=== PATIENT | male | born 1955 | race Caucasian/White ===

== ENCOUNTER 2017-09-08 20:40 | Emergency (ER) | payer OTHER ==
--- NOTE | 2017-09-08 20:54 | Emergency Department Record ---
History of Present Illness - General Chief complaint: Male Urogenital Problem Stated complaint: POSSIBLE UTI Time Seen by Provider: 09/08/17 20:51 Source: Patient Mode of Arrival: Ambulatory Limitations: No limitations - History of Present Illness Initial comments: 62 yo male presents to ED for evaluation of dysuria and urinary retention symptoms that began this evening. Patient reports similar symptoms related to a UTI, also a history of prostatitis about 10 years ago. Patient denies fevers , chills, abdominal pain, flank pain, or vomiting symptoms. MD Complaint: Dysuria Onset/Timin -: Hour(s) Radiation: None Severity: Moderate Consistency: Constant Improves with: None Worsens with: Urination Reports: Denies other symptoms - Related Data Home Medications Medication Instructions Recorded Confirmed Last Taken Allopurinol [Zyloprim] 300 mg PO DAILY 09/08/17 09/08/17 Unknown Chlorthalidone 25 mg PO DAILY 09/08/17 09/08/17 Unknown Diltiazem HCl [Cardizem Cd] 240 mg PO DAILY 09/08/17 09/08/17 Unknown Fenofibrate Nanocrystallized 48 mg PO DAILY 09/08/17 09/08/17 Unknown [Tricor] Finasteride [Proscar] 5 mg PO DAILY 09/08/17 09/08/17 Unknown Fluoxetine HCl [Prozac] 20 mg PO DAILY 09/08/17 09/08/17 Unknown Fluticasone/Vilanterol 100/25 1 puff INH RESP.DAILY 09/08/17 09/08/17 Unknown [Breo Ellipta 100-25 Mcg INH] Metformin HCl [Glucophage] 1,500 mg PO DAILY 09/08/17 09/08/17 Unknown Sitagliptin Phosphate [Januvia] 100 mg PO DAILY 09/08/17 09/08/17 Unknown Tiotropium [place] [Spiriva] 18 mcg IH DAILY 09/08/17 09/08/17 Unknown Valsartan [Diovan] 160 mg PO DAILY 09/08/17 09/08/17 Unknown Allergies Allergy/AdvReac Type Severity Reaction Status Date / Time Penicillins Allergy HIVES Verified 09/08/17 20:45 Review of Systems Constitutional: Denies: Chills, Fever, Malaise, Night sweats Eyes: Denies: Eye discharge, Eye pain ENT: Denies: Congestion, Ear pain, Epistaxis Respiratory: Denies: Cough, Dyspnea Cardiovascular: Denies: Chest pain, Dyspnea on exertion Endocrine: Denies: Fatigue, Heat or cold intolerance Gastrointestinal: Denies: Abdominal pain, Nausea, Vomiting Genitourinary: Reports: Dysuria, Retention. Denies: Incontinence Musculoskeletal: Denies: Arthralgia, Back pain, Gout, Joint swelling Skin: Denies: Bruising, Change in color, Change in hair/nails Neurological: Denies: Abnormal gait, Confusion, Headache, Seizure Psychiatric: Denies: Anxiety Hematological/Lymphatic: Denies: Anemia, Blood Clots Physical Exam - General General Appearance: Alert, Oriented x3, Cooperative, No acute distress Limitations: No limitations - Head Head exam: Atraumatic, Normocephalic, Normal inspection Head exam detail: negative: Abrasion, Contusion, Negro's sign, General tenderness, Hematoma, Laceration - Eye Eye exam: Normal appearance. negative: Conjunctival injection, Periorbital swelling, Periorbital tenderness, Scleral icterus - ENT Ear exam: negative: Auricular hematoma, Auricular trauma Nasal Exam: negative: Active bleeding, Discharge, Dried blood, Foreign body Mouth exam: negative: Drooling, Laceration, Muffled voice, Tongue elevation - Neck Neck exam: Normal inspection. negative: Meningismus, Tenderness - Respiratory Respiratory exam: Normal lung sounds bilaterally. negative: Rales, Respiratory distress, Rhonchi, Stridor - Cardiovascular Cardiovascular Exam: Regular rate, Normal rhythm, Normal heart sounds - GI/Abdominal GI/Abdominal exam: Soft. negative: Rebound, Rigid, Tenderness - Rectal Rectal exam: Deferred - exam: Deferred - Extremities Extremities exam: Normal inspection. negative: Calf tenderness, Pedal edema, Tenderness - Back Back exam: Denies: CVA tenderness (R), CVA tenderness (L) - Neurological Neurological exam: Alert, Normal gait, Oriented X3 - Psychiatric Psychiatric exam: Normal affect, Normal mood - Skin Skin exam: Normal color. negative: Abrasion Type of lesion: negative: abrasion Course Vital Signs 09/08/17 20:46 Temperature 98.4 F Respiratory 22 Rate Blood Pressure 162/83 [Left Arm] Pulse Ox 98 - Reevaluation(s) Reevaluation #1: 09/08/17 21:09 UA reviewed and appears negative for infection. Patient was updated on his UA result, denies abdominal pain, flank pain, or fever symptoms. Patient appears stable for discharge at this time. Disposition Disposition: Discharge Clinical Impression: Dysuria Disposition: Home, Self-Care Condition: (2) Stable Instructions: Dysuria (ED) Additional Instructions: Return to ED if your symptoms worsen or if you have any concerns. Follow-up with your family doctor in 3-5 as directed. Forms: Patient Portal Access Time of Disposition: 21:14 Quality - Quality Measures Quality Measures: N/A - Blood Pressure Screening Does Patient Have Any of the Following: No Blood Pressure Classification: Pre-Hypertensive BP Reading Systolic Measurement: 162 Diastolic Measurement: 83 Screening for High Blood Pressure: < Pre-Hypertensive BP, F/U Documented > [ [id number]] Pre-Hypertensive Follow-up Interventions: Referral to alternative/primary care provider.
[2017-09-08 21:03] LABS: URINE APPEARANCE CLEAR; URINE BILIRUBIN NEGATIVE (NEGATIVE); URINE BLOOD NEGATIVE (NEGATIVE); URINE COLOR YELLOW; URINE GLUCOSE (UA) NEGATIVE (NEGATIVE); URINE KETONE NEGATIVE (NEGATIVE); URINE LEUKOCYTE ESTERASE NEGATIVE (NEGATIVE); URINE NITRITE NEGATIVE (NEGATIVE); URINE PROTEIN NEGATIVE (NEGATIVE); URINE UROBILINOGEN 0.2 E.U./dL (0.20 - 1.00)
== END 2017-09-08 21:24 | disposition home or self-care (01) ==
LOC: ER 20:40
DX: R30.0 Dysuria (principal); Z87.891 Personal history of nicotine dependence
CPT/HCPCS: 81003; 99282